=== PATIENT | male | born 1990 | race Caucasian/White ===

== ENCOUNTER 2024-10-03 21:34 | Observation (INO) | payer SELFPAY ==
[2024-10-03] VITALS (7 sets, daily range): BP systolic 79–137; BP diastolic 30–116; PULSE 67–114; RESP 13–24; TEMP 35.1–36.6; O2SAT 93–100; BMI 25.0
--- NOTE | 2024-10-03 21:32 | ECG_ITS ---
APPROVED REPORT Exam: Resting ECG HR:71 bpm ECG Measurements Heart Rate 71 AXES QRSd 111 QRS 64 QT 396 T -50 QTc 419 Conclusion Atrial fibrillation Normal axis No QTc prolongation NO STEMI Electronically signed by : Ti Caslilas, 10/04/2024 01:42:27
--- NOTE | 2024-10-03 21:44 | CT_ITS ---
PROCEDURE INFORMATION: Exam: CT Head Without Contrast Exam date and time: 10/03/2024 10:05 PM Age: 33 years old Clinical indication: Other: Encephalopathy TECHNIQUE: Imaging protocol: Computed tomography of the head without contrast. Radiation optimization: All CT scans at this facility use at least one of these dose optimization techniques: automated exposure control; mA and/or kV adjustment per patient size (includes targeted exams where dose is matched to clinical indication); or iterative reconstruction. COMPARISON: No relevant prior studies available. FINDINGS: Brain: Normal. No hemorrhage. Unremarkable white matter. No mass effect. Cerebral ventricles: No ventriculomegaly. Paranasal sinuses: Visualized sinuses are unremarkable. No fluid levels. Mastoid air cells: Visualized mastoid air cells are well aerated. Bones: Unremarkable. No acute fracture. Soft tissues: Unremarkable. IMPRESSION: No acute intracranial abnormality.
--- NOTE | 2024-10-03 21:47 | XR_ITS ---
PROCEDURE INFORMATION: Exam: XR Chest Exam date and time: 10/03/2024 10:05 PM Age: 33 years old Clinical indication: Other: Encephalopathy TECHNIQUE: Imaging protocol: Radiologic exam of the chest. Views: 1 view. COMPARISON: No relevant prior studies available. FINDINGS: Lungs: Unremarkable. No consolidation. Pleural spaces: Unremarkable. No pleural effusion. No pneumothorax. Heart/Mediastinum: Unremarkable. No cardiomegaly. Bones/joints: Unremarkable. IMPRESSION: No acute findings.
[2024-10-03 21:52] LABS: Hematocrit 43.3 % (42.0-52.0); Hemoglobin 13.8 g/dL (14.1-18.0); Immature Granulocytes % 0.4 %; Mean Corpuscular HGB Conc 31.9 g/dL (31.8-35.4); Mean Corpuscular Hemoglobin 26.6 pg (27.0-31.2); Mean Corpuscular Volume 83.6 fl (80-94); Nucleated Red Blood Cells % 0 %; Platelet Count 243 K/mm3 (142-424); Red Blood Count 5.18 M/mm3 (4.60-6.20); Red Cell Distribution Width-SD 42.9 fL; White Blood Count 9.8 K/mm3 (4.8-10.8)
[2024-10-03 21:53] LABS: Microscopic, Urine URINE MICROSCOPIC (MICROSCOPIC)
[2024-10-03 21:55] LABS: Alanine Aminotransferase 22 U/L (12-78); Albumin Level 4.3 g/dl (3.5-5.0); Albumin/Globulin Ratio 1.5 (1.1-1.8); Alkaline Phosphatase 75 U/L (38-126); Anion Gap 15.6 mEq/L (5-15); Aspartate Amino Transferase 32 U/L (17-59); Bilirubin,Total 0.8 mg/dl (0.2-1.3); Blood Urea Nitrogen 22 mg/dl (9-20); Calcium 8.5 mg/dl (8.4-10.2); Carbon Dioxide 22 mmol/L (22.0-30.0); Chloride 103 mmol/L (98-107); Creatinine Clearance Estimated 72 mL/min (50-200); Creatinine,Serum 1.40 mg/dl (0.66-1.25); Estimated Glomerular Filt Rate 58 ml/min (>60); GFR (African American) 71 ML/MIN (>60); Globulin 2.9 g/dL (1.3-3.2); Glucose 169 mg/dl (74-100); Lipase 343 U/L (23-300); Sodium 138 mmol/L (136-145); Total Protein,Serum 7.2 g/dl (6.3-8.2)
[2024-10-03 21:56] LABS: Bilirubin,Urine Negative (Negative); Color,Urine YELLOW (Yellow); Glucose,Urine (UA) Negative (Negative); Ketones,Urine Negative (Negative); Leukocyte Esterase,Urine Negative (Negative); PH,Urine 6.0 (5.0-8.5); Protein,Urine Negative (Negative); Specific Gravity, Urine 1.010 (1.005-1.030); Urobilinogen,Urine 0.2 EU/dl (0.2)
[2024-10-03 21:58] LABS: Acetaminophen < 10 ug/ml (10-30); Salicylate < 1.0 mg/dL (2.0-20.0)
[2024-10-03 21:59] LABS: Potassium 2.6 mmoL/L (3.5-5.1)
--- NOTE | 2024-10-03 22:01 | PC.NURSE ---
Critical called from lab to PADDY Dominguez MD notified
[2024-10-03] MEDS: NALOXONE 2MG/2ML SYRINGE 2 MG IV (22:06)
[2024-10-03 22:07] LABS: Troponin I < 0.01 ng/ml (0.00-0.034)
[2024-10-03 22:07] LABS: WBC,Urine Occasional #/hpf (0-3)
[2024-10-03 22:09] LABS: Amphetamine/Metha Screen,Urine Negative ng/ml (<1000); Benzodiazepines Screen,Urine Negative ng/ml (<200)
[2024-10-03 22:10] LABS: Barbiturates Screen,Urine Negative ng/ml (<200)
[2024-10-03 22:11] LABS: Methadone Screen,Urine Negative ng/ml (<300)
[2024-10-03 22:12] LABS: Opiate Screen,Urine Negative ng/ml (<300)
[2024-10-03 22:13] LABS: VBG HCO3 21.0 mmol/L (23-30); VBG PCO2 42.4 mmol/L (35-51); VBG PH 7.31 mmol/L (7.31-7.41); VBG PO2 78.6 mmol/L (28-40)
[2024-10-03 22:13] LABS: Phencyclidine Screen,Urine Negative ng/ml (<25)
[2024-10-03 22:14] LABS: Lactate Venous 3.7 mmol/L (0.4-2.0)
[2024-10-03 22:45] LABS: INR 1.27 (0.9-1.1); Prothrombin Time 13.8 seconds (10.1-12.5)
[2024-10-03 22:47] LABS: Free T4 (Free Thyroxine) 1.63 ng/dl (0.78-2.19)
[2024-10-03 23:07] LABS: Creatine Kinase 147 U/L (55-170)
[2024-10-03 23:13] LABS: Total Cells Counted 100
--- NOTE | 2024-10-03 23:20 | ECG_ITS ---
APPROVED REPORT Exam: Resting ECG HR:72 bpm ECG Measurements Heart Rate 72 AXES IN 131 P 66 QRSd 106 QRS 56 QT 400 T -16 QTc 424 Conclusion SINUS RHYTHM NONSPECIFIC ST & T-WAVE ABNORMALITY No STEMI Electronically signed by : OG GOODMAN, 10/04/2024 05:18:18
[2024-10-03 23:22] LABS: Hypochromasia 1+
[2024-10-03 23:33] LABS: Anion Gap 15.9 mEq/L (5-15); Blood Urea Nitrogen 21 mg/dl (9-20); Calcium 8.1 mg/dl (8.4-10.2); Carbon Dioxide 24 mmol/L (22.0-30.0); Chloride 101 mmol/L (98-107); Creatinine Clearance Estimated 84 mL/min (50-200); Creatinine,Serum 1.20 mg/dl (0.66-1.25); Estimated Glomerular Filt Rate 70 ml/min (>60); GFR (African American) 84 ML/MIN (>60); Glucose 191 mg/dl (74-100); Sodium 138 mmol/L (136-145)
[2024-10-03 23:39] LABS: Thyroid Stimulating Hormone 4.23 uIU/mL (0.465-4.68)
[2024-10-03 23:40] LABS: Potassium 2.9 mmoL/L (3.5-5.1)
--- NOTE | 2024-10-03 23:40 | PC.NURSE ---
critical called from MD karoline notified
[2024-10-03] MEDS: POTASSIUM CHLORIDE 20MEQ TAB 60 MEQ PO (23:50)
--- NOTE | 2024-10-03 23:53 | ED_ITS ---
Discharge Plan Disposition Patient Disposition: Admitted Condition: Fair Referrals Follow up/Referrals: Provider,Referral, [Primary Care Provider, Medical] - See instructions Clinical Impressions Clinical Impression: Anaphylaxis, Atrial fibrillation, Non-ST elevation [place] (NSTEMI) Print Language Print Language: Liberian Discharge ED Provider: Ti Casillas General Adult HPI <Ti Casillas DO - Last Filed: 10/04/24 00:12> General Chief complaint: Allergic Reaction Stated complaint: anaphylaxis Time Seen by Provider: 10/03/24 21:35 Mode of Arrival: EMS Source of Information: EMS Description of Symptoms (Recalled from ER Triage Doc. by RN): Pt arrives as an anaphylactic reaction to suspected wasp sting to the left arm. EMS reports patient found lying prone on the floor with GCS 10. EMS reports patient had 3 episodes of vomiting enroute. Pt cool and diaphoretic. IV started with medications given. Pt arrives moaning but airway intact. History of Present Illness HPI narrative: This is a 33-year-old male patient, with no past medical history and no daily medications, who is presenting to the emergency department today for evaluation of anaphylaxis. The patient is a member of the [facility]. He was reportedly out woodworking today and got stung on the left shoulder by a wasp. Several minutes after this wasp sting he began experiencing lightheadedness followed by profound dyspnea and wheezing followed by intractable nausea and vomiting. His called EMS to the scene and upon their arrival they found the patient to have profound increased work of breathing and a GCS of 10. He vomited multiple times while they were on scene. They placed him on nonrebreather and administered epinephrine as well as Solu-Medrol and DuoNebs. Related Data Allergies Allergy/AdvReac Type Severity Reaction Status Date / Time No Known Allergies Allergy Verified 10/03/24 21:43 PFSH <Ti Casillas DO - Last Filed: 10/04/24 00:12> [facility] Disclaimer: The information contained in this section may have been updated after the patient was seen, as this information can be updated by other users. Social History (Updated 10/04/24 @ 00:12 by Ti Casillas DO) Smoking Status: Never smoker alcohol intake: never current occupational status: employed Travel in the last 8 weeks?: None Have you lived/traveled outside US in past 30 days?: No Contact w/someone who lives/traveled outside US past 30 days?: No Exposure to someone with infectious disease in past 14 days?: No Do you have a fever (greater than 100.4 F or 38 C)?: No Have you tested positive for COVID-19?: No Exposed to someone with COVID-19 in past 14 days?: No Do you have a sore throat?: No Do you have a cough?: No Do you have any weakness?: No Do you have any diarrhea?: No Are you experiencing any unusual bleeding?: No Do you have any muscle aches/pain?: No Do you have any abdominal pain?: No Are you experiencing loss of taste or smell?: No <Ti Casillas DO - Last Filed: 10/04/24 00:12> ROS Obtained: Yes Systems reviewed as appropriate & no additional complaints except as documented Physical Exam <Ti Casillas DO - Last Filed: 10/04/24 00:12> General General appearance: other (See MDM) Respiratory Respiratory exam: Present other (See MDM) Cardiovascular Cardiovascular exam: Present other (See MDM) Neurological Exam Neurological exam: Present other (See MDM) Medical Decision Making <Ti Casillas DO - Last Filed: 10/04/24 00:12> Medical Records Medical records reviewed: Yes I reviewed the patient's medical records. Screening: Per USPSTF and CDC recommendations, given the prevalence of disease in our region, it is our hospital?s policy to screen for HIV and viral Hepatitis for all patients aged 18 and over and those with ongoing risk factors. Luis Alberto Inquiry Pt receiving controlled substance: No Luis Alberto was queried for this patient: No Vital Signs: 10/03/24 21:28 10/03/24 21:31 10/03/24 21:33 Temperature 97.4 F L Temperature Source Axillary Pulse Rate 88 Pulse Rate [Radial] 114 H Respiratory Rate 20 24 Blood Pressure 86/59 L 79/30 L Blood Pressure [Right Arm] 137/116 H Blood Pressure Mean [Right Arm] 123 Blood Pressure Source [Right Arm] Automatic Cuff Blood Pressure Position [Right Arm] Supine 02 Sat by Pulse Oximetry 100 95 Oxygen Delivery Method Non-Rebreather Non-Rebreather Oxygen Flow Rate (LPM) 15 15 10/03/24 21:34 10/03/24 21:54 10/03/24 22:43 Temperature 95.1 F L 97.9 F Temperature Source Rectal Pulse Rate 67 97 H Pulse Rate [Radial] Respiratory Rate 13 16 Blood Pressure 94/52 L 123/49 L 131/82 Blood Pressure [Right Arm] Blood Pressure Mean [Right Arm] Blood Pressure Source [Right Arm] Blood Pressure Position [Right Arm] 02 Sat by Pulse Oximetry 100 100 Oxygen Delivery Method Room Air Room Air Oxygen Flow Rate (LPM) 10/03/24 23:35 10/04/24 00:00 10/04/24 00:15 Temperature Temperature Source Pulse Rate 69 67 64 Pulse Rate [Radial] Respiratory Rate 14 14 14 Blood Pressure 111/64 100/58 L 101/62 L Blood Pressure [Right Arm] Blood Pressure Mean [Right Arm] Blood Pressure Source [Right Arm] Blood Pressure Position [Right Arm] 02 Sat by Pulse Oximetry 93 L 96 97 Oxygen Delivery Method Oxygen Flow Rate (LPM) 10/04/24 00:30 Temperature Temperature Source Pulse Rate 67 Pulse Rate [Radial] Respiratory Rate 15 Blood Pressure 106/61 L Blood Pressure [Right Arm] Blood Pressure Mean [Right Arm] Blood Pressure Source [Right Arm] Blood Pressure Position [Right Arm] 02 Sat by Pulse Oximetry 97 Oxygen Delivery Method Oxygen Flow Rate (LPM) Lab Data Lab Results 10/03/24 21:22: VBG pH 7.31, VBG pCO2 42.4, VBG pO2 78.6 H, VBG HCO3 21.0 L, VBG Total CO2 22.3 L, VBG O2 Saturation 93.9 H, VBG Base Excess -5.2 L, VBG Lactic Acid 3.7 H 10/03/24 21:25: WBC 9.8, RBC 5.18, Hgb 13.8 L, Hct 43.3, MCV 83.6, MCH 26.6 L, MCHC 31.9, RDW 14.0, Plt Count 243, MPV 12.5 H, Neut % (Auto) 30.0 L, Lymph % (Auto) 64.6 H, [place] % (Auto) 4.3, Eos % (Auto) 0.6, Baso % (Auto) 0.1, Neut # (Auto) 3.0, Lymph # (Auto) 6.4 H, [place] # (Auto) 0.4, Eos # (Auto) 0.1, Baso # (Auto) 0.0, Total Counted 100, Neutrophils % (Manual) 34 L, Lymphocytes % (Manual) 66 H, Platelet Estimate Normal, Hypochromasia 1+, PT 13.8 H, INR 1.27 H , Sodium 138, Potassium 2.6 L*, Chloride 103, Carbon Dioxide 22, Anion Gap 15.6 H, BUN 22 H, Creatinine 1.40 H, Estimated Creat Clear 72, Estimated GFR 58 L, Est GFR ( Amer) 71, Glucose 169 H, Calcium 8.5, Total Bilirubin 0.8, AST 32, ALT 22, Alkaline Phosphatase 75, Total Creatine Kinase 147, Troponin I < 0.01, Total Protein 7.2, Albumin 4.3, Globulin 2.9, Albumin/Globulin Ratio 1.5, Lipase 343 H, TSH 4.23, Free T4 1.63, Salicylates < 1.0 L, Acetaminophen < 10 L, Plasma/Serum Alcohol < 10 10/03/24 21:45: Urine Color Yellow, Urine Appearance Clear, Urine pH 6.0, Ur Specific [place] 1.010, Urine Protein Negative, Urine Glucose (UA) Negative, Urine Ketones Negative, Urine Blood Negative, Urine Nitrate Negative, Urine Bilirubin Negative, Urine Urobilinogen 0.2, Ur Leukocyte Esterase Negative, Urine RBC None, Urine WBC Occasional, Ur Squamous Epith Cells None, Urine Bacteria None, Urine Opiates Screen Negative, Urine Methadone Screen Negative, Ur Barbituates Screen Negative, Ur Phencyclidine Scrn Negative, Ur Amphetamines Screen Negative, U Benzodiazepines Scrn Negative, Urine Cocaine Screen Negative, U Marijuana (THC) Screen Negative 10/03/24 23:20: Sodium 138, Potassium 2.9 L*, Chloride 101, Carbon Dioxide 24, A nion Gap 15.9 H, BUN 21 H, Creatinine 1.20, Estimated Creat Clear 84, Estimated GFR 70, Est GFR ( Amer) 84, Glucose 191 H, Calcium 8.1 L 10/04/24 00:39: Troponin I 0.68 H 10/03/24 21:25 10/03/24 23:20 Orders (Tests/Meds): ED MEDICATIONS Discontinued Medications Generic Name Dose Route Start Last Admin Trade Name Freq PRN Reason Stop Dose Admin Epinephrine HCl 0.1 mg 10/03/24 21:57 10/03/24 22:00 Epinephrine 1 Mg/Ml Ampul IM 10/03/24 21:58 0.1 mg ONCE ONE Administration Naloxone HCl 2 mg 10/03/24 22:02 10/03/24 22:06 Naloxone 2mg/2ml Syringe IV 10/03/24 22:03 2 mg ONCE ONE Administration Potassium Chloride 60 meq 10/03/24 23:43 10/03/24 23:50 Potassium Chloride 20meq Tab PO 10/03/24 23:44 60 meq ONCE ONE Administration ORDERS Category Date Time Status CT head/brain wo con Stat Cat Scan 10/03/24 21:44 Completed CXR --portable [XR chest portable] Stat Exams 10/03/24 21:47 Completed Acetaminophen Stat Lab 10/03/24 21:25 Completed BMP [Basic Metabolic Panel] Stat Lab 10/03/24 23:20 Completed CBC w/Auto Diff [Complete Blood Count Auto Diff] Stat Lab 10/03/24 21:25 Completed CMP [Comprehensive Metabolic Panel] Stat Lab 10/03/24 21:25 Completed Creatine Kinase Stat Lab 10/03/24 21:25 Completed Ethyl Alcohol Stat Lab 10/03/24 21:25 Completed Free T4 (Free Thyroxine) Stat Lab 10/03/24 21:25 Completed Lipase Stat Lab 10/03/24 21:25 Completed Prothrombin Time INR Stat Lab 10/03/24 21:25 Completed Salicylate Stat Lab 10/03/24 21:25 Completed Thyroid Stimulating Hormone Stat Lab 10/03/24 21:25 Completed Troponin I Q3H Lab 10/04/24 00:39 Completed Troponin I Q3H Lab 10/04/24 03:45 Ordered Troponin I Stat Lab 10/03/24 21:25 Completed UA [Urinalysis and Microscopic] Stat Lab 10/03/24 21:45 Completed UDS [Drug Screen,Urine] Stat Lab 10/03/24 21:45 Completed VBG [Venous Blood Gas] Stat RT 10/03/24 21:22 Completed ECG Data Tracing #1: I reviewed this ECG and interpreted as documented below: EKG personally interpreted by me demonstrates atrial fibrillation with a rate of 70 bpm, normal axis, narrow QRS, no QTc prolongation, T wave inversions in the inferior and lateral leads. Tracing #2: I reviewed this ECG and interpreted as documented below: EKG personally interpreted by me demonstrates normal sinus rhythm with a rate of 72 bpm, normal axis, no TN prolongation, narrow QRS, no QTc prolongation. No ST elevation or depression. There are T wave inversions in leads III and aVF. Medical Decision Narrative: In summary, this is a 33-year-old male patient who is presenting to the emergency department today for evaluation of anaphylaxis after a wasp sting to the left shoulder with resultant dyspnea and wheezing with nausea and vomiting as well as altered mental status. On arrival to the emergency department, the patient had faint wheezing with vomitus on the external surface of his mouth. He had a depressed mental status but was responding appropriately to painful stimuli and would moan incomprehensibly to painful stimuli. Despite receiving epinephrine 20 minutes prior, he was actually relatively hypotensive and had a low heart rate of 70 bpm. I had suspicion that the patient was still experiencing ongoing symptoms of anaphylaxis so we administered 0.5 mg of epinephrine intramuscularly. At this time I extended my physical examination and found that the patient had no external signs of head trauma. No deformities of the extremities. And no external signs of trauma to the anterior or posterior thorax. His pupils were pinpoint, which I also found to be odd in the setting of administration of epinephrine. Given that we had very limited information about this patient we decided to administer Narcan empirically in the event that this was a narcotic overdose. Over the next few minutes the patient had persistent hypotension with persistent bradycardia, so we did begin infusing IV fluids. He got 2 L in total. I did consider empirically intubating and mechanically ventilated in this patient, however I did not appreciate any swelling within the oropharyngeal compartment and she did not have any stridor. He seemed to be protecting his airway adequately. Therefore intubation was deferred. At this time we expanded our workup for differential that included toxic ingestion, intracranial hemorrhage, ACS and [place], drugs of abuse, electrolyte derangement, acute kidney injury, pneumonia, among others. In order to obtain urine samples we did place a Sanchez catheter. The patient responded very minimally to this. Within 15 minutes I did reevaluate the patient and his blood pressure had improved to within normal limits and his heart rate had stabilized in a normal range. At this point his GCS was still depressed and he was very groggy in appearance. I did stimulate him with sternal rubbing and informed him that if he did not show improvement and his mental status that he would necessitate intubation and mechanical ventilation. At this time the patient became spontaneously alert and sat upright in bed and was able to recount all of the events today that led him up to the hospital. He was now alert and oriented x 4. Again, this presentation is very bizarre so we did proceed with our entire encephalopathy workup. The patient's initial EKG was interpreted above. This EKG did show atrial fibrillation. My suspicion is that this is likely due to the sympathomimetic agents that we administered to the patient. Labs were personally interpreted by me. CBC did not demonstrate any actionable abnormalities. Coags are normal. His blood gas shows a pH of 7.31 with a pCO2 of 42. Lactate is 3.7, however he did receive epinephrine and DuoNebs so I feel that this is likely a type B lactic acidosis. CMP resulted showing a potassium of 2.9, again in the setting of DuoNebs and epinephrine administration you can see hypokalemia. We we will hold off on treating hypokalemia at this time and repeat a BMP in a couple of hours. Urinalysis is unremarkable. Acetaminophen and salicylates are also unremarkable. Urine drug screen is negative. CT head was personally interpreted by me and demonstrated no large intracranial hemorrhages. Official radiology read was in agreement and states that there is no acute abnormality. Approximately 1 hour 45 minutes into the patient stay I did reevaluate him again. He remains GCS of 15 and appropriately alert and interactive. His blood pressure is normal. His heart rate is normal. On the monitor he is in sinus rhythm. At this point I repeated an EKG and confirmed that he was in sinus rhythm. At this time I did feel that the patient would necessitate several hours of observation here in the emergency department secondary to the fact that he had such profound anaphylaxis and is at risk for a biphasic anaphylactic reaction. Patient was handed off to the oncoming physician Dr. Martínez who will monitor this patient throughout the observation period. Hardik Martínez MD The patient was placed in observation status at 1136 PM. Medical necessity for observational status is oximetry, telemetry, and repeat assessments to ensure that he does not develop biphasic anaphylaxis. The patient was provided serial reevaluations and cardiac monitoring while awaiting results. [Results of testing during observation remarkable for:]. [Because of these results I feel patient to be discharged home with follow-up with her PCP versus feel the patient requires admission due to]. Total time in observation [total time]. <Hardik Martínez MD - Last Filed: 10/04/24 01:49> Vital Signs: 10/03/24 21:28 10/03/24 21:31 10/03/24 21:33 Temperature 97.4 F L Temperature Source Axillary Pulse Rate 88 Pulse Rate [Radial] 114 H Respiratory Rate 20 24 Blood Pressure 86/59 L 79/30 L Blood Pressure [Right Arm] 137/116 H Blood Pressure Mean [Right Arm] 123 Blood Pressure Source [Right Arm] Automatic Cuff Blood Pressure Position [Right Arm] Supine 02 Sat by Pulse Oximetry 100 95 Oxygen Delivery Method Non-Rebreather Non-Rebreather Oxygen Flow Rate (LPM) 15 15 10/03/24 21:34 10/03/24 21:54 10/03/24 22:43 Temperature 95.1 F L 97.9 F Temperature Source Rectal Pulse Rate 67 97 H Pulse Rate [Radial] Respiratory Rate 13 16 Blood Pressure 94/52 L 123/49 L 131/82 Blood Pressure [Right Arm] Blood Pressure Mean [Right Arm] Blood Pressure Source [Right Arm] Blood Pressure Position [Right Arm] 02 Sat by Pulse Oximetry 100 100 Oxygen Delivery Method Room Air Room Air Oxygen Flow Rate (LPM) 10/03/24 23:35 10/04/24 00:00 10/04/24 00:15 Temperature Temperature Source Pulse Rate 69 67 64 Pulse Rate [Radial] Respiratory Rate 14 14 14 Blood Pressure 111/64 100/58 L 101/62 L Blood Pressure [Right Arm] Blood Pressure Mean [Right Arm] Blood Pressure Source [Right Arm] Blood Pressure Position [Right Arm] 02 Sat by Pulse Oximetry 93 L 96 97 Oxygen Delivery Method Oxygen Flow Rate (LPM) 10/04/24 00:30 Temperature Temperature Source Pulse Rate 67 Pulse Rate [Radial] Respiratory Rate 15 Blood Pressure 106/61 L Blood Pressure [Right Arm] Blood Pressure Mean [Right Arm] Blood Pressure Source [Right Arm] Blood Pressure Position [Right Arm] 02 Sat by Pulse Oximetry 97 Oxygen Delivery Method Oxygen Flow Rate (LPM) Lab Data Lab Results 10/03/24 21:22: VBG pH 7.31, VBG pCO2 42.4, VBG pO2 78.6 H, VBG HCO3 21.0 L, VBG Total CO2 22.3 L, VBG O2 Saturation 93.9 H, VBG Base Excess -5.2 L, VBG Lactic Acid 3.7 H 10/03/24 21:25: WBC 9.8, RBC 5.18, Hgb 13.8 L, Hct 43.3, MCV 83.6, MCH 26.6 L, MCHC 31.9, RDW 14.0, Plt Count 243, MPV 12.5 H, Neut % (Auto) 30.0 L, Lymph % (Auto) 64.6 H, [place] % (Auto) 4.3, Eos % (Auto) 0.6, Baso % (Auto) 0.1, Neut # (Auto) 3.0, Lymph # (Auto) 6.4 H, [place] # (Auto) 0.4, Eos # (Auto) 0.1, Baso # (Auto) 0.0, Total Counted 100, Neutrophils % (Manual) 34 L, Lymphocytes % (Manual) 66 H, Platelet Estimate Normal, Hypochromasia 1+, PT 13.8 H, INR 1.27 H , Sodium 138, Potassium 2.6 L*, Chloride 103, Carbon Dioxide 22, Anion Gap 15.6 H, BUN 22 H, Creatinine 1.40 H, Estimated Creat Clear 72, Estimated GFR 58 L, Est GFR ( Amer) 71, Glucose 169 H, Calcium 8.5, Total Bilirubin 0.8, AST 32, ALT 22, Alkaline Phosphatase 75, Total Creatine Kinase 147, Troponin I < 0.01, Total Protein 7.2, Albumin 4.3, Globulin 2.9, Albumin/Globulin Ratio 1.5, Lipase 343 H, TSH 4.23, Free T4 1.63, Salicylates < 1.0 L, Acetaminophen < 10 L, Plasma/Serum Alcohol < 10 10/03/24 21:45: Urine Color Yellow, Urine Appearance Clear, Urine pH 6.0, Ur Specific [place] 1.010, Urine Protein Negative, Urine Glucose (UA) Negative, Urine Ketones Negative, Urine Blood Negative, Urine Nitrate Negative, Urine Bilirubin Negative, Urine Urobilinogen 0.2, Ur Leukocyte Esterase Negative, Urine RBC None, Urine WBC Occasional, Ur Squamous Epith Cells None, Urine Bacteria None, Urine Opiates Screen Negative, Urine Methadone Screen Negative, Ur Barbituates Screen Negative, Ur Phencyclidine Scrn Negative, Ur Amphetamines Screen Negative, U Benzodiazepines Scrn Negative, Urine Cocaine Screen Negative, U Marijuana (THC) Screen Negative 10/03/24 23:20: Sodium 138, Potassium 2.9 L*, Chloride 101, Carbon Dioxide 24, A nion Gap 15.9 H, BUN 21 H, Creatinine 1.20, Estimated Creat Clear 84, Estimated GFR 70, Est GFR ( Amer) 84, Glucose 191 H, Calcium 8.1 L 10/04/24 00:39: Troponin I 0.68 H Orders (Tests/Meds): ED MEDICATIONS Discontinued Medications Generic Name Dose Route Start Last Admin Trade Name Hermelindo PRN Reason Stop Dose Admin Epinephrine HCl 0.1 mg 10/03/24 21:57 10/03/24 22:00 Epinephrine 1 Mg/Ml Ampul IM 10/03/24 21:58 0.1 mg ONCE ONE Administration Naloxone HCl 2 mg 10/03/24 22:02 10/03/24 22:06 Naloxone 2mg/2ml Syringe IV 10/03/24 22:03 2 mg ONCE ONE Administration Potassium Chloride 60 meq 10/03/24 23:43 10/03/24 23:50 Potassium Chloride 20meq Tab PO 10/03/24 23:44 60 meq ONCE ONE Administration ORDERS Category Date Time Status CT head/brain wo con Stat Cat Scan 10/03/24 21:44 Completed CXR --portable [XR chest portable] Stat Exams 10/03/24 21:47 Completed Acetaminophen Stat Lab 10/03/24 21:25 Completed BMP [Basic Metabolic Panel] Stat Lab 10/03/24 23:20 Completed CBC w/Auto Diff [Complete Blood Count Auto Diff] Stat Lab 10/03/24 21:25 Completed CMP [Comprehensive Metabolic Panel] Stat Lab 10/03/24 21:25 Completed Creatine Kinase Stat Lab 10/03/24 21:25 Completed Ethyl Alcohol Stat Lab 10/03/24 21:25 Completed Free T4 (Free Thyroxine) Stat Lab 10/03/24 21:25 Completed Lipase Stat Lab 10/03/24 21:25 Completed Prothrombin Time INR Stat Lab 10/03/24 21:25 Completed Salicylate Stat Lab 10/03/24 21:25 Completed Thyroid Stimulating Hormone Stat Lab 10/03/24 21:25 Completed Troponin I Q3H Lab 10/04/24 00:39 Completed Troponin I Q3H Lab 10/04/24 03:45 Ordered Troponin I Stat Lab 10/03/24 21:25 Completed UA [Urinalysis and Microscopic] Stat Lab 10/03/24 21:45 Completed UDS [Drug Screen,Urine] Stat Lab 10/03/24 21:45 Completed VBG [Venous Blood Gas] Stat RT 10/03/24 21:22 Completed Medical Decision Narrative: In summary, this is a 33-year-old male patient who is presenting to the emergency department today for evaluation of anaphylaxis after a wasp sting to the left shoulder with resultant dyspnea and wheezing with nausea and vomiting as well as altered mental status. On arrival to the emergency department, the patient had faint wheezing with vomitus on the external surface of his mouth. He had a depressed mental status but was responding appropriately to painful stimuli and would moan incomprehensibly to painful stimuli. Despite receiving epinephrine 20 minutes prior, he was actually relatively hypotensive and had a low heart rate of 70 bpm. I had suspicion that the patient was still experiencing ongoing symptoms of anaphylaxis so we administered 0.5 mg of epinephrine intramuscularly. At this time I extended my physical examination and found that the patient had no external signs of head trauma. No deformities of the extremities. And no external signs of trauma to the anterior or posterior thorax. His pupils were pinpoint, which I also found to be odd in the setting of administration of epinephrine. Given that we had very limited information about this patient we decided to administer Narcan empirically in the event that this was a narcotic overdose. Over the next few minutes the patient had persistent hypotension with persistent bradycardia, so we did begin infusing IV fluids. He got 2 L in total. I did consider empirically intubating and mechanically ventilated in this patient, however I did not appreciate any swelling within the oropharyngeal compartment and she did not have any stridor. He seemed to be protecting his airway adequately. Therefore intubation was deferred. At this time we expanded our workup for differential that included toxic ingestion, intracranial hemorrhage, ACS and [place], drugs of abuse, electrolyte derangement, acute kidney injury, pneumonia, among others. In order to obtain urine samples we did place a Sanchez catheter. The patient responded very minimally to this. Within 15 minutes I did reevaluate the patient and his blood pressure had improved to within normal limits and his heart rate had stabilized in a normal range. At this point his GCS was still depressed and he was very groggy in appearance. I did stimulate him with sternal rubbing and informed him that if he did not show improvement and his mental status that he would necessitate intubation and mechanical ventilation. At this time the patient became spontaneously alert and sat upright in bed and was able to recount all of the events today that led him up to the hospital. He was now alert and oriented x 4. Again, this presentation is very bizarre so we did proceed with our entire encephalopathy workup. The patient's initial EKG was interpreted above. This EKG did show atrial fibrillation. My suspicion is that this is likely due to the sympathomimetic agents that we administered to the patient. Labs were personally interpreted by me. CBC did not demonstrate any actionable abnormalities. Coags are normal. His blood gas shows a pH of 7.31 with a pCO2 of 42. Lactate is 3.7, however he did receive epinephrine and DuoNebs so I feel that this is likely a type B lactic acidosis. CMP resulted showing a potassium of 2.9, again in the setting of DuoNebs and epinephrine administration you can see hypokalemia. We we will hold off on treating hypokalemia at this time and repeat a BMP in a couple of hours. Urinalysis is unremarkable. Acetaminophen and salicylates are also unremarkable. Urine drug screen is negative. CT head was personally interpreted by me and demonstrated no large intracranial hemorrhages. Official radiology read was in agreement and states that there is no acute abnormality. Approximately 1 hour 45 minutes into the patient stay I did reevaluate him again. He remains GCS of 15 and appropriately alert and interactive. His blood pressure is normal. His heart rate is normal. On the monitor he is in sinus rhythm. At this point I repeated an EKG and confirmed that he was in sinus rhythm. At this time I did feel that the patient would necessitate several hours of observation here in the emergency department secondary to the fact that he had such profound anaphylaxis and is at risk for a biphasic anaphylactic reaction. Patient was handed off to the oncoming physician Dr. Martínez who will monitor this patient throughout the observation period. Hardik Martínez MD The patient was placed in observation status at 1136 PM. Medical necessity for observational status is oximetry, telemetry, and repeat assessments to ensure that he does not develop biphasic anaphylaxis. The patient was provided serial reevaluations and cardiac monitoring while awaiting results. Results of testing during observation remarkable for: Elevated troponin at 0.68. I reviewed the ECGs and do not appreciate acute ischemic abnormality. I recommended admission to the patient and family but they are unsure of this at this time. I discussed this case at length with the vest busheler, Dr. Jean who is concerned for cardiomyopathy. He does not recommend acute intervention of the troponin but recommends admission to the hospital for echo and further workup which I believe is very reasonable and consistent with my recommendations as well. Patient is alert, oriented, feels well with no chest pain, I do not appreciate murmur even with Valsalva, but discussed the recommendations with the family and patient who are at this time agreeable to admission for continued workup. I discussed this case with the hospitalist who graciously accepted this patient for admission after discussing recommendations from Dr. Jean. Patient admitted in stable condition. Total time in observation total time 2 hours 10 minutes. Critical Care <Ti Casillas, - Last Filed: 10/04/24 00:12> Critical Care Time Critical Care Time: Yes Attestation: On 10/03/24, the high probability of a clinically significant, sudden or life threatening deterioration of the following system(s) required my full and direct attention, intervention and personal management. The time I documented below is in addition to time spent performing reported procedures but includes the following listed in this critical care notation. Total Time Total Critical Care Time: 35
[2024-10-04] VITALS (8 sets, daily range): BP systolic 100–131; BP diastolic 56–73; PULSE 57–80; RESP 12–16; TEMP 36.3–36.9; O2SAT 93–99; BMI 23.8
[2024-10-04 01:09] LABS: Troponin I 0.68 ng/ml (0.00-0.034)
--- NOTE | 2024-10-04 01:17 | PC.NURSE ---
Critical Trop called at 0.68 per lab. DOREEN INFANTE told of finding.
[2024-10-04 02:14] LABS: Reflex Lactic Add Lactic Reflex
--- NOTE | 2024-10-04 02:22 | P.HP_ITS ---
History of Present Illness *Admission Date: 10/04/24 *Reason for visit:: Wasp sting *History of present illness: This is a very pleasant 33-year-old Congregational male who presents emergency department today for anaphylaxis secondary to wasp sting. 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 Was stung by a wasp but initially felt okay. States that shortly after he developed dizziness and chest pressure. States that he felt he was going to faint. EMS was called and he was noted to be altered with a GCS of 10 and had episodes of vomiting. He was also diaphoretic at that time. Epinephrine was administered as well as Solu-Medrol and DuoNebs with initial improvement in symptoms. While in the emergency department he was noted to be mildly hypotensive with a heart rate of 70. He received another dose of IM epinephrine with subsequent bradycardia and hypotension. After several hours of observation the Emergency Department he had normalization of blood pressure and heart rate but did have a spike in troponin 0.68. Initial EKG with noted for sinus rhythm but secondary EKG after shock state resulted with A-fib with controlled rate. Given these findings, Dr. Jean was consulted with cardiology and recommends observation and echocardiogram in a.m. to rule out HOCM. He is admitted to hospital service at this time. [facility] Disclaimer: The information contained in this section may have been updated after the patient was seen, as this information can be updated by other users. Social History (Updated 10/04/24 @ 00:12 by Ti Casillas DO) Smoking Status: Never smoker alcohol intake: never current occupational status: employed Travel in the last 8 weeks?: None Have you lived/traveled outside US in past 30 days?: No Contact w/someone who lives/traveled outside US past 30 days?: No Exposure to someone with infectious disease in past 14 days?: No Do you have a fever (greater than 100.4 F or 38 C)?: No Have you tested positive for COVID-19?: No Exposed to someone with COVID-19 in past 14 days?: No Do you have a sore throat?: No Do you have a cough?: No Do you have any weakness?: No Do you have any diarrhea?: No Are you experiencing any unusual bleeding?: No Do you have any muscle aches/pain?: No Do you have any abdominal pain?: No Are you experiencing loss of taste or smell?: No Review of Systems Review of Systems Review of systems:: pertinent systems reviewed and negative unless documented below Review of systems (narrative): Negative except for HPI Meds Home Medications and Allergies New Prescriptions to Start Prescriptions: Allergies Allergy/AdvReac Type Severity Reaction Status Date / Time No Known Allergies Allergy Verified 10/03/24 21:43 Exam Data for Last 24 hours Vital signs and Labs for Last 24 Hours: Temp Pulse Resp BP Pulse Ox O2 Del Method O2 Flow Rate 97.9 F 67 15 106/61 L 97 Room Air 15 10/03/24 22:43 10/04/24 00:30 10/04/24 00:30 10/04/24 00:30 10/04/24 00:30 10/03/24 22:43 10/03/24 21:31 Laboratory Results - last 24 hr 10/03/24 21:22: VBG pH 7.31, VBG pCO2 42.4, VBG pO2 78.6 H, VBG HCO3 21.0 L, VBG Total CO2 22.3 L, VBG O2 Saturation 93.9 H, VBG Base Excess -5.2 L, VBG Lactic Acid 3.7 H 10/03/24 21:25: WBC 9.8, RBC 5.18, Hgb 13.8 L, Hct 43.3, MCV 83.6, MCH 26.6 L, MCHC 31.9, RDW 14.0, Plt Count 243, MPV 12.5 H, Neut % (Auto) 30.0 L, Lymph % (Auto) 64.6 H, [place] % (Auto) 4.3, Eos % (Auto) 0.6, Baso % (Auto) 0.1, Neut # (Auto) 3.0, Lymph # (Auto) 6.4 H, [place] # (Auto) 0.4, Eos # (Auto) 0.1, Baso # (Auto) 0.0, Total Counted 100, Neutrophils % (Manual) 34 L, Lymphocytes % ( Manual) 66 H, Platelet Estimate Normal, Hypochromasia 1+, PT 13.8 H, INR 1.27 H, Sodium 138, Potassium 2.6 L*, Chloride 103, Carbon Dioxide 22, Anion Gap 15.6 H, BUN 22 H, Creatinine 1.40 H, Estimated Creat Clear 72, Estimated GFR 58 L, Est GFR ( Amer) 71, Glucose 169 H, Calcium 8.5, Total Bilirubin 0.8, AST 32, ALT 22, Alkaline Phosphatase 75, Total Creatine Kinase 147, Troponin I < 0.01, Total Protein 7.2, Albumin 4.3, Globulin 2.9, Albumin/Globulin Ratio 1.5, Lipase 343 H, TSH 4.23, Free T4 1.63, Salicylates < 1.0 L, Acetaminophen < 10 L, Plasma/Serum Alcohol < 10 10/03/24 21:45: Urine Color Yellow, Urine Appearance Clear, Urine pH 6.0, Ur Specific [place] 1.010, Urine Protein Negative, Urine Glucose (UA) Negative, Urine Ketones Negative, Urine Blood Negative, Urine Nitrate Negative, Urine Bilirubin Negative, Urine Urobilinogen 0.2, Ur Leukocyte Esterase Negative, Urine RBC None, Urine WBC Occasional, Ur Squamous Epith Cells None, Urine Bacteria None, Urine Opiates Screen Negative, Urine Methadone Screen Negative, Ur Barbituates Screen Negative, Ur Phencyclidine Scrn Negative, Ur Amphetamines Screen Negative, U Benzodiazepines Scrn Negative, Urine Cocaine Screen Negative, U Marijuana (THC) Screen Negative 10/03/24 23:20: Sodium 138, Potassium 2.9 L*, Chloride 101, Carbon Dioxide 24, Anion Gap 15.9 H, BUN 21 H, Creatinine 1.20, Estimated Creat Clear 84, Estimated GFR 70, Est GFR ( Amer) 84, Glucose 191 H, Calcium 8.1 L 10/04/24 00:39: Troponin I 0.68 H I & O for Last 24 hours: Intake & Output 10/01/24 10/02/24 10/03/24 10/04/24 23:59 23:59 23:59 23:59 Weight 68.039 kg Constitutional Constitutional: no acute distress *Routine HEENT Exam Head: Present normocephalic Eye: Present EOMI and PERRL ENT: Present mucous membranes moist *Routine Neck Exam Neck: Present supple; Absent lymphadenopathy *Routine Respiratory Exam Respiratory: Present CTA bilaterally *Routine Cardiovascular Exam Cardiovascular: Present RRR *Routine Abdominal Exam Abdominal: Present soft and normoactive bowel sounds; Absent tenderness *Routine Rectal Exam Rectal:: deferred *Routine Genitalia Exam Genitalia:: deferred *Routine Extremities Exam Extremities: Absent cyanosis, clubbing or edema *Routine Skin Exam Skin: Present warm; Absent rash *Routine Neurological Exam Neurological: Present alert and oriented X3 Assessment and Plan *Assessment and plan (1) Non-ST elevation [place] (NSTEMI): Status: Acute Category: Medical Code(s): I21.4 - Non-ST elevation (NSTEMI) myocardial infarction (2) Atrial fibrillation: Status: Acute Category: Medical Code(s): I48.91 - Unspecified atrial fibrillation (3) Anaphylaxis: Status: Acute Category: Medical Code(s): T78.2XXA - Anaphylactic shock, unspecified, initial encounter Plan #Anaphylaxis #NSTEMI #Atrial fibrillation Troponin of 0.01 with increased to 0.68. Likely in the setting of anaphylaxis but given transient hypotension and bradycardia it was felt he would benefit from overnight monitoring Echocardiogram in a.m. to evaluate for HOCM Trend troponin Cardiology consult for a.m. Cardiac telemetry #Hypokalemia Replace per protocol
--- NOTE | 2024-10-04 02:33 | PC.NURSE ---
pt arrived to floor at this time
[2024-10-04] MEDS: 0.9 % SODIUM CHLORIDE 1000ML 1,000 ML 75 ML IV (02:43)
[2024-10-04 03:25] LABS: Lactic Acid Follow Up (RFLX 1) 1.7 mmol/L (0.7-2.1)
[2024-10-04 03:41] LABS: Troponin I 1.15 ng/ml (0.00-0.034)
[2024-10-04 06:11] LABS: Hematocrit 39.3 % (42.0-52.0); Hemoglobin 12.8 g/dL (14.1-18.0); Immature Granulocytes % 0.4 %; Mean Corpuscular HGB Conc 32.6 g/dL (31.8-35.4); Mean Corpuscular Hemoglobin 26.8 pg (27.0-31.2); Mean Corpuscular Volume 82.2 fl (80-94); Nucleated Red Blood Cells % 0 %; Platelet Count 187 K/mm3 (142-424); Red Blood Count 4.78 M/mm3 (4.60-6.20); Red Cell Distribution Width-SD 42.9 fL; White Blood Count 14.1 K/mm3 (4.8-10.8)
[2024-10-04 06:21] LABS: Chloride 107 mmol/L (98-107)
[2024-10-04 06:22] LABS: Potassium 4.4 mmoL/L (3.5-5.1); Sodium 138 mmol/L (136-145)
[2024-10-04 06:24] LABS: Blood Urea Nitrogen 17 mg/dl (9-20); Creatinine Clearance Estimated 107 mL/min (50-200); Creatinine,Serum 0.90 mg/dl (0.66-1.25); Estimated Glomerular Filt Rate 97 ml/min (>60); GFR (African American) 118 ML/MIN (>60)
[2024-10-04 06:25] LABS: Anion Gap 13.4 mEq/L (5-15); Calcium 8.7 mg/dl (8.4-10.2); Carbon Dioxide 22 mmol/L (22.0-30.0); Glucose 162 mg/dl (74-100); Magnesium 1.5 mg/dl (1.6-2.3)
--- NOTE | 2024-10-04 06:31 | PC.NURSE ---
Addendum entered by Keyla Moya RN 10/04/24 07:39: Pt. had a Ashton catheter in place upon arrival to the floor. Ashton discontinued after pt. admitted. Pt. had 1600 ml of clear pale urine in ashton. Original Note: Pt. was admitted overnight from the ED. Pt. was stung by a wasp to left shoulder. after being stung he was light headed, dizzy, had trouble breathing and was wheezing, Pt. also had multiple episodes of nausea and vomiting. Pt's called EMS and pt was very pale and diaphoretic. Pt. had altered mental status. Pt. given Narcan and had no response. Pt. given EPI and was hypotensive and bradycardiac post Epi. Pt. became alert and orientated after a couple of hours of observation. Pt. troponin's elevated. Pt. was admitted with Anaphylaxis and NSTEMI at bedside. Pt. denies CP, N/V, light headedness, dizziness. Personal items and call christianson in reach. Bed in low and locked position. Pt. to get a cardiology consult today.
[2024-10-04 08:18] LABS: Troponin I 0.92 ng/ml (0.00-0.034)
--- NOTE | 2024-10-04 12:57 | P.DS_ITS ---
General Admission date:: 10/04/24 Discharge date: 10/04/24 HPI HPI HPI: This is a very pleasant 33-year-old [place] male who presents emergency department today for anaphylaxis secondary to wasp sting. 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 Was stung by a wasp but initially felt okay. States that shortly after he developed dizziness and chest pressure. States that he felt he was going to faint. EMS was called and he was noted to be altered with a GCS of 10 and had episodes of vomiting. He was also diaphoretic at that time. Epinephrine was administered as well as Solu-Medrol and DuoNebs with initial improvement in symptoms. While in the emergency department he was noted to be mildly hypotensive with a heart rate of 70. He received another dose of IM epinephrine with subsequent bradycardia and hypotension. After several hours of observation the Emergency Department he had normalization of blood pressure and heart rate but did have a spike in troponin 0.68. Initial EKG with noted for sinus rhythm but secondary EKG after shock state resulted with A-fib with controlled rate. Given these findings, Dr. Jean was consulted with cardiology and recommends observation and echocardiogram in a.m. to rule out HOCM. He is admitted to hospital service at this time. Hospital Course Hospital Course Hospital Course: After several hours of observation the Emergency Department he had normalization of blood pressure and heart rate but did have a spike in troponin 0.68. Initial EKG with noted for sinus rhythm but secondary EKG after shock state resulted with A-fib with controlled rate. Given these findings, Dr. Jean was consulted with cardiology and recommends observation and echocardiogram in a.m. to rule out HOCM. #Anaphylaxis - resolved #NSTEMI - likely due to demand ischemia, resolved #Atrial fibrillation - currently in sinus rhythm, counseled patient to follow up with cardiology anbd have echo, patient is requesting to be discharged and see cardiology as OP, discussed with cardiology, they are ok with DC. patient given referral Exam Data for Last 24 hours Vital signs and Labs for Last 24 Hours: Temp Pulse Resp BP Pulse Ox O2 Del Method O2 Flow Rate 98.4 F 57 L 16 114/56 L 93 L Room Air 15 10/04/24 12:00 10/04/24 12:00 10/04/24 12:00 10/04/24 12:00 10/04/24 12:00 10/04/24 10:30 10/03/24 21:31 Laboratory Results - last 24 hr 10/03/24 21:22: VBG pH 7.31, VBG pCO2 42.4, VBG pO2 78.6 H, VBG HCO3 21.0 L, VBG Total CO2 22.3 L, VBG O2 Saturation 93.9 H, VBG Base Excess -5.2 L, VBG Lactic Acid 3.7 H 10/03/24 21:25: WBC 9.8, RBC 5.18, Hgb 13.8 L, Hct 43.3, MCV 83.6, MCH 26.6 L, MCHC 31.9, RDW 14.0, Plt Count 243, MPV 12.5 H, Neut % (Auto) 30.0 L, Lymph % (Auto) 64.6 H, [place] % (Auto) 4.3, Eos % (Auto) 0.6, Baso % (Auto) 0.1, Neut # (Auto) 3.0, Lymph # (Auto) 6.4 H, [place] # (Auto) 0.4, Eos # (Auto) 0.1, Baso # (Auto) 0.0, Total Counted 100, Neutrophils % (Manual) 34 L, Lymphocytes % (Manual) 66 H, Platelet Estimate Normal, Hypochromasia 1+, PT 13.8 H, INR 1.27 H , Sodium 138, Potassium 2.6 L*, Chloride 103, Carbon Dioxide 22, Anion Gap 15.6 H, BUN 22 H, Creatinine 1.40 H, Estimated Creat Clear 72, Estimated GFR 58 L, Est GFR ( Amer) 71, Glucose 169 H, Calcium 8.5, Total Bilirubin 0.8, AST 32, ALT 22, Alkaline Phosphatase 75, Total Creatine Kinase 147, Troponin I < 0.01, Total Protein 7.2, Albumin 4.3, Globulin 2.9, Albumin/Globulin Ratio 1.5, Lipase 343 H, TSH 4.23, Free T4 1.63, Salicylates < 1.0 L, Acetaminophen < 10 L, Plasma/Serum Alcohol < 10 10/03/24 21:45: Urine Color Yellow, Urine Appearance Clear, Urine pH 6.0, Ur Specific [place] 1.010, Urine Protein Negative, Urine Glucose (UA) Negative, Urine Ketones Negative, Urine Blood Negative, Urine Nitrate Negative, Urine Bilirubin Negative, Urine Urobilinogen 0.2, Ur Leukocyte Esterase Negative, Urine RBC None, Urine WBC Occasional, Ur Squamous Epith Cells None, Urine Bacteria None, Urine Opiates Screen Negative, Urine Methadone Screen Negative, Ur Barbituates Screen Negative, Ur Phencyclidine Scrn Negative, Ur Amphetamines Screen Negative, U Benzodiazepines Scrn Negative, Urine Cocaine Screen Negative, U Marijuana (THC) Screen Negative 10/03/24 23:20: Sodium 138, Potassium 2.9 L*, Chloride 101, Carbon Dioxide 24, A nion Gap 15.9 H, BUN 21 H, Creatinine 1.20, Estimated Creat Clear 84, Estimated GFR 70, Est GFR ( Amer) 84, Glucose 191 H, Calcium 8.1 L 10/04/24 00:39: Troponin I 0.68 H 10/04/24 03:11: Lactate 1.7, Troponin I 1.15 H 10/04/24 05:38: WBC 14.1 H D, RBC 4.78, Hgb 12.8 L, Hct 39.3 L, MCV 82.2, MCH 26.8 L, MCHC 32.6, RDW 14.3, Plt Count 187, MPV 12.1 H, Neut % (Auto) 93.8 H, Lymph % (Auto) 4.1 L, [place] % (Auto) 1.5 L, Eos % (Auto) 0.1, Baso % (Auto) 0.1, Neut # (Auto) 13.2 H, Lymph # (Auto) 0.6 L, [place] # (Auto) 0.2, Eos # (Auto) 0.0, Baso # (Auto) 0.0, Sodium 138, Potassium 4.4 D, Chloride 107, Carbon Dioxide 22, Anion Gap 13.4, BUN 17, Creatinine 0.90 D, Estimated Creat Clear 107, Estimated GFR 97, Est GFR ( Amer) 118 D, Glucose 162 H, Calcium 8.7, Magnesium 1.5 L 10/04/24 07:30: Troponin I 0.92 H I & O for Last 24 hours: Intake & Output 10/01/24 10/02/24 10/03/24 10/04/24 23:59 23:59 23:59 23:59 Intake Total 591.25 / 591.25 Output Total 0 / 0 Balance 591.25 / 591.25 Weight 68.039 kg 64.773 kg Constitutional Constitutional: no acute distress *Routine HEENT Exam Head: Present normocephalic Eye: Present EOMI and PERRL ENT: Present mucous membranes moist *Routine Neck Exam Neck: Present supple; Absent lymphadenopathy *Routine Respiratory Exam Respiratory: Present CTA bilaterally *Routine Cardiovascular Exam Cardiovascular: Present RRR *Routine Abdominal Exam Abdominal: Present soft and normoactive bowel sounds; Absent tenderness *Routine Extremities Exam Extremities: Absent cyanosis, clubbing or edema *Routine Skin Exam Skin: Present warm; Absent rash *Routine Neurological Exam Neurological: Present alert and oriented X3 Results Data Completed and Pending Labs on day of discharge: Labs from last 24 hours 10/04/24 10/04/24 10/04/24 07:30 05:38 03:11 WBC 14.1 H D RBC 4.78 Hgb 12.8 L Hct 39.3 L MCV 82.2 MCH 26.8 L MCHC 32.6 RDW 14.3 Plt Count 187 MPV 12.1 H Neut % (Auto) 93.8 H Lymph % (Auto) 4.1 L [place] % (Auto) 1.5 L Eos % (Auto) 0.1 Baso % (Auto) 0.1 Neut # (Auto) 13.2 H Lymph # (Auto) 0.6 L [place] # (Auto) 0.2 Eos # (Auto) 0.0 Baso # (Auto) 0.0 Total Counted Neutrophils % (Manual) Lymphocytes % (Manual) Platelet Estimate Hypochromasia PT INR VBG pH VBG pCO2 VBG pO2 VBG HCO3 VBG Total CO2 VBG O2 Saturation VBG Base Excess VBG Lactic Acid Sodium 138 Potassium 4.4 D Chloride 107 Carbon Dioxide 22 Anion Gap 13.4 BUN 17 Creatinine 0.90 D Estimated Creat Clear 107 Estimated GFR 97 Est GFR ( Amer) 118 D Glucose 162 H Lactate 1.7 Calcium 8.7 Magnesium 1.5 L Total Bilirubin AST ALT Alkaline Phosphatase Total Creatine Kinase Troponin I 0.92 H 1.15 H Total Protein Albumin Globulin Albumin/Globulin Ratio Lipase TSH Free T4 Urine Color Urine Appearance Urine pH Ur Specific [place] Urine Protein Urine Glucose (UA) Urine Ketones Urine Blood Urine Nitrate Urine Bilirubin Urine Urobilinogen Ur Leukocyte Esterase Urine RBC Urine WBC Ur Squamous Epith Cells Urine Bacteria Salicylates Urine Opiates Screen Urine Methadone Screen Acetaminophen Ur Barbituates Screen Ur Phencyclidine Scrn Ur Amphetamines Screen U Benzodiazepines Scrn Urine Cocaine Screen U Marijuana (THC) Screen Plasma/Serum Alcohol 10/04/24 10/03/24 10/03/24 00:39 23:20 21:45 WBC RBC Hgb Hct MCV MCH MCHC RDW Plt Count MPV Neut % (Auto) Lymph % (Auto) [place] % (Auto) Eos % (Auto) Baso % (Auto) Neut # (Auto) Lymph # (Auto) [place] # (Auto) Eos # (Auto) Baso # (Auto) Total Counted Neutrophils % (Manual) Lymphocytes % (Manual) Platelet Estimate Hypochromasia PT INR VBG pH VBG pCO2 VBG pO2 VBG HCO3 VBG Total CO2 VBG O2 Saturation VBG Base Excess VBG Lactic Acid Sodium 138 Potassium 2.9 L* Chloride 101 Carbon Dioxide 24 Anion Gap 15.9 H BUN 21 H Creatinine 1.20 Estimated Creat Clear 84 Estimated GFR 70 Est GFR ( Amer) 84 Glucose 191 H Lactate Calcium 8.1 L Magnesium Total Bilirubin AST ALT Alkaline Phosphatase Total Creatine Kinase Troponin I 0.68 H Total Protein Albumin Globulin Albumin/Globulin Ratio Lipase TSH Free T4 Urine Color Yellow Urine Appearance Clear Urine pH 6.0 Ur Specific [place] 1.010 Urine Protein Negative Urine Glucose (UA) Negative Urine Ketones Negative Urine Blood Negative Urine Nitrate Negative Urine Bilirubin Negative Urine Urobilinogen 0.2 Ur Leukocyte Esterase Negative Urine RBC None Urine WBC Occasional Ur Squamous Epith Cells None Urine Bacteria None Salicylates Urine Opiates Screen Negative Urine Methadone Screen Negative Acetaminophen Ur Barbituates Screen Negative Ur Phencyclidine Scrn Negative Ur Amphetamines Screen Negative U Benzodiazepines Scrn Negative Urine Cocaine Screen Negative U Marijuana (THC) Screen Negative Plasma/Serum Alcohol 10/03/24 10/03/24 21:25 21:22 WBC 9.8 RBC 5.18 Hgb 13.8 L Hct 43.3 MCV 83.6 MCH 26.6 L MCHC 31.9 RDW 14.0 Plt Count 243 MPV 12.5 H Neut % (Auto) 30.0 L Lymph % (Auto) 64.6 H [place] % (Auto) 4.3 Eos % (Auto) 0.6 Baso % (Auto) 0.1 Neut # (Auto) 3.0 Lymph # (Auto) 6.4 H [place] # (Auto) 0.4 Eos # (Auto) 0.1 Baso # (Auto) 0.0 Total Counted 100 Neutrophils % (Manual) 34 L Lymphocytes % (Manual) 66 H Platelet Estimate Normal Hypochromasia 1+ PT 13.8 H INR 1.27 H VBG pH 7.31 VBG pCO2 42.4 VBG pO2 78.6 H VBG HCO3 21.0 L VBG Total CO2 22.3 L VBG O2 Saturation 93.9 H VBG Base Excess -5.2 L VBG Lactic Acid 3.7 H Sodium 138 Potassium 2.6 L* Chloride 103 Carbon Dioxide 22 Anion Gap 15.6 H BUN 22 H Creatinine 1.40 H Estimated Creat Clear 72 Estimated GFR 58 L Est GFR ( Amer) 71 Glucose 169 H Lactate Calcium 8.5 Magnesium Total Bilirubin 0.8 AST 32 ALT 22 Alkaline Phosphatase 75 Total Creatine Kinase 147 Troponin I < 0.01 Total Protein 7.2 Albumin 4.3 Globulin 2.9 Albumin/Globulin Ratio 1.5 Lipase 343 H TSH 4.23 Free T4 1.63 Urine Color Urine Appearance Urine pH Ur Specific [place] Urine Protein Urine Glucose (UA) Urine Ketones Urine Blood Urine Nitrate Urine Bilirubin Urine Urobilinogen Ur Leukocyte Esterase Urine RBC Urine WBC Ur Squamous Epith Cells Urine Bacteria Salicylates < 1.0 L Urine Opiates Screen Urine Methadone Screen Acetaminophen < 10 L Ur Barbituates Screen Ur Phencyclidine Scrn Ur Amphetamines Screen U Benzodiazepines Scrn Urine Cocaine Screen U Marijuana (THC) Screen Plasma/Serum Alcohol < 10 DS: Diagnosis Discharge Diagnosis (1) Non-ST elevation [place] (NSTEMI): Status: Acute Code(s): I21.4 - Non-ST elevation (NSTEMI) myocardial infarction (2) Atrial fibrillation: Status: Acute Code(s): I48.91 - Unspecified atrial fibrillation (3) Anaphylaxis: Status: Acute Code(s): T78.2XXA - Anaphylactic shock, unspecified, initial encounter Meds Home Medications and Allergies Home Medications ?Medication ?Instructions ?Recorded ?Confirmed ?Type No Known Home Medications 10/04/2409/13 History New Prescriptions to Start Prescriptions: Allergies Allergy/AdvReac Type Severity Reaction Status Date / Time bee sting Allergy Severe Dizziness Uncoded 10/04/24 02:48 Discharge Plan Disposition Patient Disposition: Home, Self-Care Condition: Good Follow up Plan Follow up with: Shailesh Gerardo MD [Staff Physician, Cardiology] - 1 day Referral Note: on Sunday at 1pm Problems: Atrial fibrillation Prescriptions/Medication Reconciliation: No Action No Known Home Medications Problem Reconciliation Problems Reviewed?: Yes Patient Discharge Instructions ACTIVITY: Continue current activity DIET: continue same diet Patient Instructions: DI for Anaphylaxis, Catheter-Associated Urinary Tract Infection Print Language: Salvadorean Providers Primary Care Provider: Provider,Referral Admit Provider: Martell Reyes Attending Provider: Martell Reyes
--- NOTE | 2024-10-06 10:25 | SW/DCPLANNER ---
Spoke with patient on the phone. Patient stated that he is doing alot better and can tell hes been through something. Patient stated that he is aware of his upcoming appointment. Patient stated that he does not take any medication. Patient stated that he does not have any concerns or questions. Dante Bush
== END 2024-10-04 13:39 | disposition home or self-care (01) ==
LOC: ER 10-04 01:49 → 2ND 10-04 01:55
PROVIDERS: Nurse Practitioner Acute Care; Admitting Provider Internal Medicine Adolescent Medicine; Emergency Provider Student in an Organized Health Care Education/Training Program; Visit Provider Internal Medicine Adolescent Medicine
DX: T78.2XXA Anaphylactic shock, unspecified, initial encounter (principal); I48.91 Unspecified atrial fibrillation; I21.4 Non-ST elevation (NSTEMI) myocardial infarction; G93.40 Encephalopathy, unspecified; E87.6 Hypokalemia; Z91.030 Bee allergy status
CPT/HCPCS: 36415; 51702; 70450; 71045; 80048; 80053; 80307; 80320; 80329; 81001; 82550; 82803; 83605; 83690; 83735; 84439; 84443; 84484; 85007; 85025; 85027; 85610; 93005; 96361; 96372; 96374; 99285; G0378; J0169; J2312; J7030

== ENCOUNTER 2024-10-27 07:51 | Outpatient (CLI) | payer SELFPAY ==
--- NOTE | 2024-10-27 08:00 | CA_ITS ---
APPROVED REPORT EXAM: Comprehensive 2D, Doppler, and color-flow Echocardiogram Partner Manager: Triny Neff CRT Ht: 5 ft 5 in Wt: 141lbs BSA: 1.71 BP: 128/84 mmHg Indications: Chest Pain, bradycardia, aFib HR 38-41 thru out exam 2D Dimensions LA Volume 38.90 mL LA Volume Index 22.20 mL/m2 (M/F) 16-34 M-Mode Dimensions RVDd 2.38 cm (0.9-2.6) LA Diam 2.64 cm (1.9-4.0) LVDd 5.36 cm (3.5-5.7) LVDs 3.46 cm (3.5-5.7) IVSd 1.28 cm (0.6-1.1) PWd 0.68 cm (0.6-1.1) EF (Teich) 64.40% FS 35.40% EDV (Teich) 138.90 mL TAPSE 2.33 (<1.7) ESV (Teich) 49.50 mL LV Diastology E Decel Time 193 (160-240 msec) E/A Ratio 2.50 MED A' 5.90 cm/s LAT A' 7.60 cm/s Aortic Valve AO Peak GR. 5.90 mmHg Mitral Valve MV E Max Valeriy. 101.0 (40-130 cm/s) MV A Velocity 41.0 (40-130 cm/s) E/A Ratio 2.50 MV PHT 57.0 ms Pulmonary Valve PV Peak Velocity 172.0 (50-150 cm/s) Tricuspid Valve TR P. Velocity 153.00 cm/s RAP Estimate 10.00 mmHg RVSP 19.30 mmHg Left Ventricle The left ventricle is normal size. Left ventricular systolic function is normal. The left ventricular ejection fraction is within the normal range. There is normal left ventricular wall thickness. There is normal LV segmental wall motion. The left ventricular diastolic function is normal. LVEF is 55% Right Ventricle The right ventricle is mildly dilated. The right ventricular systolic function is normal. Atria The left atrium is mildly dilated. The right atrium is mildly dilated. There is no color Doppler evidence of interatrial shunt. Aortic Valve The aortic valve is mildly thickened. There is no hemodynamically significant aortic valvular stenosis. Trace aortic regurgitation is present. Mitral Valve The mitral valve is normal in structure. No evidence of mitral valve stenosis. Mild mitral regurgitation is present. Tricuspid Valve The tricuspid valve leaflets are thin and pliable. Trace tricuspid regurgitation. There is insufficient TR jet to estimate RVSP. Pulmonic Valve The pulmonary valve is grossly normal in structure. Mild pulmonic valve regurgitation is present. Great Vessels The aortic root is normal in size. IVC is normal in size and collapses >50% with inspiration. Pericardium There is no pericardial effusion. Other Information Study Quality: Fair Conclusion Normal biventricular systolic function. Mild RV dilation. Mild biatrial dilation. Mild MR, mild TX. Electronically signed by : Jenna Gerardo MD 10/27/2024 21:11:32
== END 2024-10-27 23:59 | disposition home or self-care (01) ==
LOC: RT 07:52
PROVIDERS: PCP Family Medicine; Visit Provider Internal Medicine
DX: I08.8 Other rheumatic multiple valve diseases (principal); I21.4 Non-ST elevation (NSTEMI) myocardial infarction; I48.91 Unspecified atrial fibrillation; R00.1 Bradycardia, unspecified
CPT/HCPCS: 93306